=== PATIENT | female | born 1985 | race African-American/Black ===

== ENCOUNTER 2016-11-14 20:07 | Emergency (ER) | payer BC ==
[2016-11-14 20:30] VITALS: BP 124/78; PULSE 75; TEMP 98.4; BMI 26.6
--- NOTE | 2016-11-14 20:37 | PDOC ---
History of Present Illness - General History Source: Patient Exam Limitations: No Limitations - History of Present Illness Initial Comments: 11/14/16 21:31 The patient is a 31 year old female, A0, with no significant past medical history, who presents to the emergency department with vaginal bleeding for the past month. She reports that her vaginal bleeding has been intermittent in nature during this time frame. The bleeding is mild in intensity, causing her to change her pads once daily, sometimes only as a precautionary measure. She states that she took a home test 2 weeks ago which was negative. She states that she has sexual intercourse with one partner and has not had any sexual complications. She notes that she is on the Nuvaring for control. 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 The patient denies chest pain, shortness of breath, headache and dizziness. Denies fever, chills, nausea, vomit, diarrhea and constipation. Denies dysuria, frequency and urgency Allergies: None Past surgical history: None reported Social history: Cigarette use (1 daily). No alcohol or drug use reported <Benedicto Gongora - Last Filed: 11/14/16 21:31> <Juliana Molina - Last Filed: 11/15/16 02:46> - General Chief Complaint: Vaginal Bleeding Stated Complaint: IRREG VAG BLEEDING Time Seen by Provider: 11/14/16 20:11 Past History <Benedicto Gongora - Last Filed: 11/14/16 21:31> - Past Medical History Thyroid Disease: No - Reproductive History Is Patient Now?: No - Immunization History Immunization Up to Date: Yes - Psycho/Social/Smoking Cessation Hx Anxiety: No Suicidal Ideation: No Smoking History: Current some day smoker Have you smoked in the past 12 months: Yes Number of Cigarettes Smoked Daily: 1 Cigars Per Day: 0 Information on smoking cessation initiated: Yes 'Breaking Loose' booklet given: 11/14/16 Hx Alcohol Use: No Substance Use Type: None <Juliana Molina - Last Filed: 11/15/16 02:46> - Past Medical History Allergies/Adverse Reactions: Allergies Allergy/AdvReac Type Severity Reaction Status Date / Time No Known Allergies Allergy Verified 08/12/13 12:47 Home Medications: Ambulatory Orders No Home Medications 0 dose .ROUTE UTDICT 08/12/13 Etonogestrel [Nexplanon] 11/14/16 Review of Systems - Review of Systems Able to Perform ROS?: Yes Comments:: 11/14/16 21:31 GENERAL/CONSTITUTIONAL: No fever or chills. No weakness. HEAD, EYES, EARS, NOSE AND THROAT: No change in vision. No ear pain or discharge. No sore throat. CARDIOVASCULAR: No chest pain or shortness of breath RESPIRATORY: No cough, wheezing, or hemoptysis. GASTROINTESTINAL: No nausea, vomiting, diarrhea or constipation. GENITOURINARY: +Vaginal bleeding. No dysuria, frequency, or change in urination. MUSCULOSKELETAL: No joint or muscle swelling or pain. No neck or back pain. SKIN: No rash NEUROLOGIC: No headache, vertigo, loss of consciousness, or change in strength/ sensation. ENDOCRINE: No increased thirst. No abnormal weight change HEMATOLOGIC/LYMPHATIC: No anemia, easy bleeding, or history of blood clots. ALLERGIC/IMMUNOLOGIC: No hives or skin allergy. <Benedicto Gongora - Last Filed: 11/14/16 21:31> *Physical Exam - Vital Signs Last Vital Signs Temp Pulse Resp BP Pulse Ox 98.4 F 75 18 124/78 100 11/14/16 20:14 11/14/16 20:14 11/14/16 20:14 11/14/16 20:14 11/14/16 20:14 - Physical Exam Comments: 11/14/16 21:31 GENERAL: Awake, alert, and fully oriented, in no acute distress HEAD: No signs of trauma, normocephalic, atraumatic EYES: PERRLA, EOMI, sclera anicteric, conjunctiva clear ENT: Auricles normal inspection, hearing grossly normal, nares patent, oropharynx clear without exudates. Moist mucosa NECK: Normal ROM, supple, no lymphadenopathy, JVD, or masses LUNGS: No distress, speaks full sentences, clear to auscultation bilaterally HEART: Regular rate and rhythm, normal S1 and S2, no murmurs, rubs or gallops, peripheral pulses normal and equal bilaterally. ABDOMEN: Soft, nontender, normoactive bowel sounds. No guarding, no rebound. No masses EXTREMITIES: Normal inspection, Normal range of motion, no edema. No clubbing or cyanosis. NEUROLOGICAL: Cranial nerves II through XII grossly intact. Normal speech, normal gait, no focal sensorimotor deficits SKIN: Warm, Dry, normal turgor, no rashes or lesions noted. <Benedicto Gongora - Last Filed: 11/14/16 21:31> - Vital Signs Last Vital Signs Temp Pulse Resp BP Pulse Ox 98.4 F 75 18 124/78 100 11/14/16 20:14 11/14/16 20:14 11/14/16 20:14 11/14/16 20:14 11/14/16 20:14 <Juliana Molina - Last Filed: 11/15/16 02:46> ED Treatment Course - ADDITIONAL ORDERS Additional order review: Laboratory Results 11/14/16 20:00 Urine HCG, Qual Negative <Benedicto Gongora - Last Filed: 11/14/16 21:31> - LABORATORY CBC & Chemistry Diagram: 11/14/16 20:00 11/14/16 20:00 - ADDITIONAL ORDERS Additional order review: Laboratory Results 11/14/16 20:00 Urine HCG, Qual Negative <Juliana Molina - Last Filed: 11/15/16 02:46> Progress Note - Progress Note Progress Note: Documentation has been prepared under my direction and personally reviewed by me in its entirety. I attest that this documented accurately reflects all work, treatment, procedures and medical decision making performed by me. <Juliana Molina - Last Filed: 11/15/16 02:46> Medical Decision Making - Medical Decision Making As noted above, this 31-year-old woman presents with mild vaginal bleeding for the last month. Flow has generally been light; she has felt somewhat fatigued over the last few days but no other constitutional symptoms have occurred. She has not been able to see a new mails supervisor after her previous mails supervisor moved out of the practice. Patient has used NuvaRing for the last few years and has had no previous side effects. She has a history of anemia during but no other significant medical problem Exam as noted above. Because patient has been fatigued, CBC and chemistry profile were sent. Laboratory evaluation showed borderline normal hemoglobin/hematocrit (10.9/32.9 ) MCV was 74. Remainder of the laboratory evaluation was essentially normal; PGU was negative Results discussed with the patient. Patient states that she will follow-up with mails supervisor in the near future. She will call the office tomorrow and explain that she was seen in the ER and needs urgent follow-up. The patient should return to the emergency room if she has pain or more severe bleeding <Juliana Molina - Last Filed: 11/15/16 02:46> *DC/Admit/Observation/Transfer - Attestations Scribe Attestion: 11/14/16 21:32 Documentation prepared by Benedicto Gongora, acting as general medical practitioner for Juliana Molina MD <Benedicto Gongora - Last Filed: 11/14/16 21:31> <Juliana Molina - Last Filed: 11/15/16 02:46> Diagnosis at time of Disposition: Dysfunctional uterine bleeding - Discharge Dispostion Disposition: HOME Condition at time of disposition: Stable - Referrals Referrals: STAFF,NOT ON [Primary Care Provider] - - Patient Instructions Printed Discharge Instructions: DI for Abnormal Uterine Bleeding Additional Instructions: followup with mails supervisor within the next 4-5 days return to ER if you worsening pain or bleeding - Post Discharge Activity Work/School Note: Back to Work
[2016-11-14 21:56] LABS: BASOPHIL 1.2 % (0-2.0); EOSINOPHIL 2.6 % (0-4.5); MCH 24.5 pg (25.7-33.7); MEAN CELL VOLUME 74.1 fl (80-96); MEAN PLT VOLUME 8.6 fl (7.5-11.1); NEUTROPHILS 57.4 % (42.8-82.8); PLATELET COUNT 324 K/MM3 (134-434); WHITE BLOOD COUNT 8.5 K/mm3 (4.0-10.0)
[2016-11-14 22:11] LABS: ALBUMIN 3.5 g/dl (3.5-5.0); ALK PHOS 44 U/L (32-92); ANION GAP 7 (8-16); CALCIUM 9.1 mg/dl (8.4-10.2); CO2 25 mmol/L (22-28); CREATININE 0.8 mg/dl (0.6-1.3); GLUCOSE,RANDOM 102 mg/dl (74-106); SGOT/AST 15 U/L (10-42); SGPT/ALT 12 U/L (10-40); TOT PROT 6.9 g/dl (6.4-8.3); URINE APPEARANCE CLEAR; URINE COLOR YELLOW
[2016-11-14 22:12] LABS: URINE BILIRUBIN NEGATIVE (NEGATIVE); URINE BLOOD 3+ (NEGATIVE); URINE GLUCOSE (UA) NEGATIVE (NEGATIVE); URINE KETONE TRACE (NEGATIVE); URINE LEUK ESTERASE NEGATIVE (NEGATIVE); URINE NITRITE NEGATIVE (NEGATIVE); URINE PROTEIN NEGATIVE (NEGATIVE); URINE UROBILINOGEN 0.2 E.U/dl (0.2-1.0)
[2016-11-14 22:25] LABS: URINE BACTERIA FEW /hpf (NEGATIVE)
[2016-11-14 22:34] LABS: BILIRUBIN,TOTAL < 0.3 mg/dl (0.2-1.0)
== END 2016-11-14 22:49 | disposition home or self-care (01) ==
LOC: FER 20:07
DX: N93.8 Other specified abnormal uterine and vaginal bleeding (principal); F17.210 Nicotine dependence, cigarettes, uncomplicated
CPT/HCPCS: 36415; 80053; 81003; 81015; 84703; 85025; 99282-25

== ENCOUNTER 2017-06-14 23:00 | Emergency (ER) | payer BC ==
--- NOTE | 2017-06-14 23:07 | PDOC ---
History of Present Illness - General Chief Complaint: Cold Symptoms Stated Complaint: COLD SYMPTOMS Time Seen by Provider: 06/14/17 23:06 - History of Present Illness Initial Comments: This 31-year-old woman with history of seasonal ALLERGIES (previously spring only) presents with 4 day history of nasal congestion/clear nasal discharge/ mild sore throat/nonproductive cough. Patient has been taking [id number] antihistamines/decongestants (Claritin D alternating with Zyrtec). Symptoms have been somewhat intermittent in that on some days, she has milder symptoms. Tonight, she reports severe nasal congestion. She denies using any over-the- counter nasal decongestant sprays. There has been no fever/chills,purulent nasal discharge, severe headache or wheezing. No sick contacts or recent travel. Patient has an 11-year-old son who has seasonal ALLERGIES also. Past History - Past Medical History Allergies/Adverse Reactions: Allergies Allergy/AdvReac Type Severity Reaction Status Date / Time No Known Allergies Allergy Verified 08/12/13 12:47 Home Medications: Ambulatory Orders Fluticasone Prop 0.05% Nasal [Flonase -] 2 spray NS DAILY #1 spray.pump Loratadine [Claritin] 10 mg PO PRN PRN 06/14/17 Thyroid Disease: No - Immunization History Immunization Up to Date: Yes - Suicide/Smoking/Psychosocial Hx Smoking History: Current some day smoker Have you smoked in the past 12 months: Yes Number of Cigarettes Smoked Daily: 1 Cigars Per Day: 0 'Breaking Loose' booklet given: 11/14/16 Hx Alcohol Use: No Substance Use Type: None Review of Systems - Review of Systems Able to Perform ROS?: Yes Comments:: 12 point review of systems is negative except for what is noted in the history of present illness *Physical Exam - Physical Exam Comments: GENERAL: Adult female, alert and oriented 3, in mild distress secondary nasal congestion but in no acute respiratory distress HEAD: Normal with no signs of trauma. EYES: PERRLA, EOMI, sclera anicteric, conjunctiva clear. ENT: Ears normal, nares patent, oropharynx clear without exudates. Moist mucous membranes. NECK: Normal range of motion, supple without lymphadenopathy, JVD, or masses. LUNGS: Breath sounds equal, clear to auscultation bilaterally. No wheezes, and no crackles. EXTREMITIES: Normal range of motion, no edema. No clubbing or cyanosis. No erythema, or tenderness. NEUROLOGICAL: Cranial nerves II through XII grossly intact. Normal speech. No focal neurological deficits. Progress Note - Progress Note Progress Note: Clinical presentation most consistent with acute rhinitis. In light of the fact the patient has a history of seasonal ALLERGIES and no associated fever/ significant sore throat/myalgias or malaise, less likely to be of viral origin. In any case, as explained to the patient, immediate treatment is symptomatic for either viral or ALLERGIC rhinitis. Since the patient has not recently taken intranasal steroids (she has used them in the past for her springtime ALLERGIES), will start Flonase 2 sprays in each nostril daily. Patient was advised to return or see her doctor if she develops fever/severe pain or purulent nasal discharge suggesting bacterial sinusitis. Also, if she continues to have persistent symptoms consistent with ALLERGIC rhinitis, she should follow-up with her doctor for further evaluation/treatment. *DC/Admit/Observation/Transfer Diagnosis at time of Disposition: Acute rhinitis Qualifiers: Rhinitis type: allergic Allergic rhinitis trigger: unspecified Allergic rhinitis seasonality: seasonal Qualified Code(s): J30.2 - Other seasonal allergic rhinitis - Discharge Dispostion Disposition: HOME Condition at time of disposition: Stable - Prescriptions Prescriptions: Fluticasone Prop 0.05% Nasal [Flonase -] 2 spray NS DAILY #1 spray.pump - Referrals Referrals: Santos Carr MD [Primary Care Provider] - 1 week - Patient Instructions Printed Discharge Instructions: Allergic Rhinitis Additional Instructions: Rest; drink plenty of water Continue Claritin-D as previously Flonase nasal spray: 2 sprays each nostril once a day Ibuprofen/naproxen/acetaminophen as needed for headache/facial pain; take with food Return or see your doctor if you have fever/yellow or green nasal discharge/ severe facial pain Follow-up with your doctor within the next week
[2017-06-14 23:08] VITALS: BP 132/79; PULSE 85; TEMP 98.4; BMI 25.8
== END 2017-06-14 23:31 | disposition home or self-care (01) ==
LOC: FER 23:00
DX: J30.2 Other seasonal allergic rhinitis (principal)
CPT/HCPCS: 99281-25

== ENCOUNTER 2017-10-23 20:24 | Emergency (ER) | payer SELFPAY ==
[2017-10-23 20:41] VITALS: BP 145/98; PULSE 74; TEMP 98.8; BMI 26.6
[2017-10-23] MEDS ORDERED: CYCLOBENZAPRINE HCL 5 MG TABLET PO ONE (21:18)
[2017-10-23] MEDS ORDERED: CYCLOBENZAPRINE HCL 10 MG TABLET (FP) ONE (21:21)
--- NOTE | 2017-10-23 21:24 | PDOC ---
History of Present Illness <EverCookie Benjamin - Last Filed: 10/23/17 21:19> - General History Source: Patient Exam Limitations: No Limitations - History of Present Illness Initial Comments: 10/23/17 21:26 The patient is a 32 year old female, with no significant past medical history, who presents to the emergency department complaining of mid/lower back for approximately 4-5 days. Patient reports she first noted her back pain several days ago, s/p squatting heavy weight at the gym. Patient reports her pain is constant and does not radiate anywhere. Patient reports her pain is exacerbated with movement, coughing, or sneezing. Now worse after doing laundry yesterday. She denies any associated numbness, tingling, headache, or dizziness. Patient reports she began taking Ibuprofen for the pain with minimal relief. Today, patient reports her pain worsened so she took Aleve, with mild relief. She denies any history of back problems or any other trauma. Allergies: NKDA Past Surgical History: None reported Social History: Non smoker. No ETOH or recreational drug use. <Eva Oglesby - Last Filed: 10/23/17 21:58> - General Chief Complaint: Back Pain Stated Complaint: BACK PAIN Time Seen by Provider: 10/23/17 21:08 Past History - Past Medical History COPD: No Thyroid Disease: No - Immunization History Immunization Up to Date: Yes - Suicide/Smoking/Psychosocial Hx Smoking History: Never smoked Have you smoked in the past 12 months: Yes Number of Cigarettes Smoked Daily: 1 Cigars Per Day: 0 'Breaking Loose' booklet given: 11/14/16 Hx Alcohol Use: No Drug/Substance Use Hx: Yes (MARIJUANA) Substance Use Type: None <Cookie Curtis - Last Filed: 10/23/17 21:19> <Eva Oglesby - Last Filed: 10/23/17 21:58> - Past Medical History Allergies/Adverse Reactions: Allergies Allergy/AdvReac Type Severity Reaction Status Date / Time No Known Allergies Allergy Verified 08/12/13 12:47 Home Medications: Ambulatory Orders Cyclobenzaprine HCl [Flexeril 10 mg] 10 mg PO BID PRN 3 Days #6 tablet MDD 2 05/02 Ibuprofen [Advil -] 600 mg PO ONCE 10/23/17 Review of Systems - Review of Systems Able to Perform ROS?: Yes Comments:: 10/23/17 21:26 See HPI. All other systems reviewed and unremarkable <Eva Oglesby - Last Filed: 10/23/17 21:58> *Physical Exam - Vital Signs Last Vital Signs Temp Pulse Resp BP Pulse Ox 98.8 F 74 16 145/98 100 10/23/17 20:30 10/23/17 20:30 10/23/17 20:30 10/23/17 20:30 10/23/17 20:30 - Physical Exam Comments: 10/23/17 21:19 NAD gait steady no stepoffs, no point tenderness straight leg negative no CVAT <Cookie Curtis - Last Filed: 10/23/17 21:19> - Vital Signs Last Vital Signs Temp Pulse Resp BP Pulse Ox 98.8 F 74 16 145/98 100 10/23/17 20:30 10/23/17 20:30 10/23/17 20:30 10/23/17 20:30 10/23/17 20:30 <Eva Oglesby - Last Filed: 10/23/17 21:58> ED Treatment Course - Medications Given in the ED: ED Medications Discontinued Medications Generic Name Dose Route Start Last Admin Trade Name Keithq PRN Reason Stop Dose Admin Cyclobenzaprine HCl 10 mg 10/23/17 21:18 10/23/17 21:23 Cyclobenzaprine Hcl PO 10/23/17 21:19 10 mg DAILY ONE Administration <Eva Oglesby - Last Filed: 10/23/17 21:58> Medical Decision Making - Medical Decision Making 10/23/17 21:20 32yoF w/ musculoskeletal LBP after exercise, worse after doing laundry yesterday. - continue aleve - flexeril - discussed rest, careful lifting, heat therapy and gentle stretching./ - DC <Cookie Curtis - Last Filed: 10/23/17 21:19> *DC/Admit/Observation/Transfer - Discharge Dispostion Admit: No <Cookie Curtis - Last Filed: 10/23/17 21:19> - Attestations Scribe Attestion: 10/23/17 21:26 Documentation prepared by Eva Oglesby, acting as emergency medical service manager for Cookie Curtis MD. <MendelEva - Last Filed: 10/23/17 21:58> Diagnosis at time of Disposition: Low back pain - Discharge Dispostion Disposition: HOME Condition at time of disposition: Good - Prescriptions Prescriptions: Cyclobenzaprine HCl [Flexeril 10 mg] 10 mg PO BID PRN 3 Days #6 tablet MDD 2 PRN Reason: Back Pain - Referrals Referrals: ON STAFF,NOT [Primary Care Provider] - - Patient Instructions Printed Discharge Instructions: DI for Low Back Pain Additional Instructions: prescriptions have been sent to your pharmacy: Flexeril 2x daily as needed. Continue aleve 2 tabs 2x daily. Add Tylenol if needed. Continue heat therapy Add gentle stretching. Stretches for back and gluteal muscles performed while lying on your back. Child's pose from Yoga. Be very careful with lifting. Always lift from your legs. Avoid all lifting while you still have back pain. - Post Discharge Activity
== END 2017-10-23 22:04 | disposition home or self-care (01) ==
LOC: FER 20:24
DX: M54.5 Low back pain (principal)
CPT/HCPCS: 99282-25

== ENCOUNTER 2020-09-27 08:47 | Emergency (ER) | payer OTHER | END 2020-09-27 09:33 | disposition home or self-care (01) | LOC: FER 08:47 | DX: L03.032 Cellulitis of left toe (principal) | CPT/HCPCS: 99282-25 ==

== ENCOUNTER 2021-10-02 10:41 | Emergency (ER) | payer OTHER ==
[2021-10-02] MEDS ORDERED: IBUPROFEN 400 MG TABLET (FP) PO ONE ×2 (10:54→11:16)
[2021-10-02] MEDS ORDERED: ACETAMINOPHEN 500 MG TABLET (FP) PO ONE (10:54)
[2021-10-02] MEDS ORDERED: LIDOCAINE 5% TOPICAL PATCH TP ONE (10:54)
[2021-10-02 11:05] VITALS: BP 130/80; PULSE 84; TEMP 99; BMI 27.4
[2021-10-02] MEDS ORDERED: LIDOCAINE 5% TOPICAL PATCH ONE (11:16)
[2021-10-02] MEDS ORDERED: ACETAMINOPHEN 500 MG TABLET (FP) ONE (11:16)
[2021-10-02] MEDS ORDERED: LIDOCAINE PATCH REMOVAL MC SCH (22:00)
== END 2021-10-02 12:25 | disposition home or self-care (01) ==
LOC: FER 10:41
DX: M79.641 Pain in right hand (principal); M54.50 Low back pain, unspecified; W10.9XXA Fall (on) (from) unspecified stairs and steps, initial encounter
CPT/HCPCS: 73130-TC-RT-FY; 99283-25

== ENCOUNTER 2023-09-13 17:12 | Emergency (ER) | payer OTHER ==
[2023-09-13 17:31] VITALS: BP 129/74; PULSE 92; RESP 16; TEMP 97.7; BMI 27.8
[2023-09-13] MEDS ORDERED: hydrOXYzine PAMOATE 50 MG CAPSULE (FP) PO ONE (17:44)
[2023-09-13] MEDS ORDERED: KETOROLAC TROMETHAMINE 60 MG/2 ML VIAL IM ONE (17:44)
[2023-09-13] MEDS ORDERED: hydrOXYzine PAMOATE 25 MG CAPSULE (FP) PO ONE (17:49)
[2023-09-13] MEDS ORDERED: KETOROLAC TROMETHAMINE 60 MG/2 ML VIAL ONE (17:50)
[2023-09-13] MEDS ORDERED: ACETAMINOPHEN WITH CODEINE 300MG/30MG TABLET PO ONE (19:05)
[2023-09-13] MEDS ORDERED: ACETAMINOPHEN WITH CODEINE 300MG/30MG TABLET ONE (19:19)
[2023-09-13] MEDS ORDERED: LIDOCAINE 5% TOPICAL PATCH TP ONE (20:46)
[2023-09-13] MEDS ORDERED: LIDOCAINE 5% TOPICAL PATCH ONE (20:51)
[2023-09-14] MEDS ORDERED: LIDOCAINE PATCH REMOVAL MC ONE (09:00)
== END 2023-09-13 22:32 | disposition home or self-care (01) ==
LOC: FER 17:12
PROC: 3E0233Z Introduction of Anti-inflammatory into Muscle, Percutaneous Approach (ICD-10-PCS; principal; 2023-09-13)
DX: M54.50 Low back pain, unspecified (principal); S39.012A Strain of muscle, fascia and tendon of lower back, initial encounter; X50.1XXA Overexertion from prolonged static or awkward postures, initial encounter
CPT/HCPCS: 99284-25

== ENCOUNTER 2024-06-25 21:18 | Emergency (ER) | payer SELFPAY ==
[2024-06-25 21:40] VITALS: BP 125/72; PULSE 78; RESP 16; TEMP 98.1; BMI 28.3
[2024-06-25 21:41] LABS: HCG,QUALITATIVE URINE Positive
[2024-06-25 22:52] LABS: HEMATOCRIT 36.5 % (32.4-45.2); HEMOGLOBIN 11.1 G/dL (10.7-15.3); MCH 24.3 pg (25.7-33.7); MCHC 30.5 g/dl (32.0-36.0); MEAN CELL VOLUME 79.6 fl (80-96); MEAN PLT VOLUME 7.8 fl (7.5-11.1); PLATELET COUNT 321.5 10^3/uL (134-434); RBC 4.58 10^6/uL (3.60-5.2); RDW 19.4 % (11.6-15.6); WHITE BLOOD COUNT 8.6 10^3/uL (4.0-10.8)
[2024-06-25 23:17] LABS: ALBUMIN 4.3 g/dl (3.4-5.0); BILIRUBIN,TOTAL 0.3 mg/dl (0.2-1); CALCIUM 9.6 mg/dl (8.5-10.1); CREATININE 0.7 mg/dl (0.6-1.3); POTASSIUM 3.9 mmol/L (3.5-5.1); TOT PROT 6.7 g/dl (6.4-8.2)
[2024-06-26] MEDS: RHO(D) IMMUNE GLOBULIN 1,500 UNIT DISP.SYRIN IM ONE (02:26)
== END 2024-06-26 02:32 | disposition home or self-care (01) ==
LOC: FER 21:18
PROC: 3E023GC Introduction of Other Therapeutic Substance into Muscle, Percutaneous Approach (ICD-10-PCS; principal; 2024-06-26)
DX: O26.851 Spotting complicating pregnancy, first trimester (principal); Z3A.01 Less than 8 weeks gestation of pregnancy
CPT/HCPCS: 36415; 76801-TC; 80053; 81003; 81015; 84702; 84703; 85027; 96372; 99284-25; J2790